=== PATIENT | male | born 2000 | race Caucasian/White ===

== ENCOUNTER 2019-05-15 10:46 | Emergency (ER) | payer MEDICAID ==
[~2019-05-15] VITALS: Ht 165.1 cm; Wt 68.0 kg
[2019-05-15 10:59] VITALS: BP 124/57; Ht 165.1 cm; Wt 68.0 kg
== END 2019-05-15 15:30 | disposition home or self-care (01) ==
LOC: ED 10:46
DX: S80.851A Superficial foreign body, right lower leg, initial encounter (principal); X58.XXXA Exposure to other specified factors, initial encounter; Y93.89 Activity, other specified; Y92.89 Other specified places as the place of occurrence of the external cause; Y99.8 Other external cause status
CPT/HCPCS: J2001